=== PATIENT | male | born 1995 | race Caucasian/White ===

== ENCOUNTER 2017-01-16 13:55 | Emergency (ER) | payer OTHER ==
[~2017-01-16] VITALS: Ht 175.3 cm; Wt 67.8 kg
[2017-01-16 13:59] VITALS: BP 140/79; PULSE 69; TEMP 36.8; O2SAT 96; Ht 175.3 cm; Wt 67.8 kg
--- NOTE | 2017-01-16 14:26 | EMERGENCY ROOM VISIT NOTE ---
ED Visit Note First contact with patient: 14:12 CHIEF COMPLAINT: Rash HISTORY OF PRESENT ILLNESS: This 21-year-old male patient presents to the emergency department complaining of a rash in both of his armpits and groin area which started about 2 weeks ago. Patient states the rash is itchy, not painful, no drainage, no fevers or chills, no joint pain or swelling, nausea, or loss of appetite. They deny any URI symptoms. The patient has tried hydrocortisone cream with some relief of itching but has not improved the rash. No change in food, soap, detergents, or other environmental factors. No new medications. No weakness or numbness. REVIEW OF SYSTEMS: A 6 system review of systems was completed with positives and pertinent negatives listed in the HPI. ALLERGIES: Loratidine MEDICATIONS: No medications PMH: No significant PMH SOCIAL HISTORY: [employer] student, denies tobacco, occasional alcohol. PHYSICAL EXAM: Vital Signs: Reviewed Nurse's notes, vital signs stable. GENERAL : Pleasant and cooperative, in no acute distress, well-developed, well- nourished. SKIN: There is a white patchy rash in the bilateral axilla and perineal area that appears consistent with a fungal infection, no erythema, tenderness, warmth, or drainage to suggest cellulitis. Capillary refill less than 2 seconds. EMERGENCY DEPARTMENT COURSE: I examined the patient. Exam findings consistent with fungal infection. Prescription for ketoconazole cream sent to pharmacy and patient educated on use and plan for follow-up, he verbalized understanding. Patient was discharged home in stable condition and ambulatory. Current/Historical Medications Scheduled Ketoconazole (Ketoconazole), 1 APPLN EXT BID [corticosteroid oint], 1 APPLN TOP DAILY Allergies Coded Allergies: Loratadine (Unverified Adverse Reaction, Unknown, headache, 01/16/17) Vital Signs Date Time Temp Pulse Resp B/P (MAP) Pulse Ox O2 Delivery O2 Flow Rate FiO2 01/16/17 13:59 36.8 69 20 140/79 96 Room Air Departure Information Impression Primary Impression: Tinea Dispostion Home / Self-Care Condition GOOD Prescriptions Ketoconazole (Ketoconazole) 45 Appln/15 Gm Cr 1 APPLN EXT BID for 21 Days, #1 APPL 1 Refill Prov: Gaby Tanner CRNP 01/16/17 Referrals No Doctor, Assigned (PCP) Patient Instructions ED Infec Skin Fungal Tinea, My [facility] Additional Instructions Keep the areas clean and dry. Use the antifungal ointment twice a day for the next 2-3 weeks. Always apply cream to clean, dry skin. Follow up with your PCP in the next 3-4 weeks if your rash is not resolved, or sooner if your rash is getting worse. Return to the emergency department for any signs of infection (increasing redness, swelling, pain, hot to touch, pus drainage, or fevers/chills).
[2017-01-16] MEDS ORDERED: [UNRECOGNIZED DRUG - OTHER] TOP (14:46)
[2017-01-16] MEDS ORDERED: NZRCR EXT (15:13)
== END 2017-01-16 15:53 | disposition home or self-care (01) ==
LOC: C.EDB 13:57 → C.EDD 15:53
DX: B35.9 Dermatophytosis, unspecified (principal)